=== PATIENT | male | born 1975 | race Caucasian/White ===

== ENCOUNTER 2017-02-22 08:51 | Emergency (ER) | payer OTHER ==
[~2017-02-22] VITALS: Ht 167.6 cm; Wt 79.4 kg
[2017-02-22 08:58] VITALS: BP 135/89; Ht 167.6 cm; Wt 79.4 kg
== END 2017-02-22 10:22 | disposition home or self-care (01) ==
LOC: ED 08:51
DX: R51 Headache (principal)
CPT/HCPCS: J1885